=== PATIENT | male | born 1980 | race Two or more races ===

== ENCOUNTER 2018-09-27 11:29 | Emergency (ER) | payer OTHER ==
[~2018-09-27] VITALS: Ht 177.8 cm; Wt 99.8 kg
--- NOTE | 2018-09-27 11:30 | NUR ---
PATIENT C/O ABDOMINAL PAIN X "FEW DAYS", BREATHING EVEN AND UNLABORED, NO SOB NOTED. KEPT COMFORTABLE, PLACED ON THE MONITOR, AWAITING FOR MD COLUMBA.
[2018-09-27] MEDS ORDERED: ONDANSETRON HCL/PF 4 MG/2 ML VIAL IVP ONE (12:00)
[2018-09-27] MEDS ORDERED: MORPHINE SULFATE INJ 2 MG/ML DISP.SYRIN IV ONE (12:00)
[2018-09-27] MEDS ORDERED: IV NS 0.9% 1,000 ML BAG IV ONE (12:00)
[2018-09-27] MEDS ORDERED: ONDANSETRON HCL/PF 4 MG/2 ML VIAL ONE (12:01)
[2018-09-27] MEDS ORDERED: MORPHINE SULFATE INJ 4 MG/ML DISP.SYRIN ONE (12:01)
[2018-09-27 12:07] LABS: BASOPHILS % (AUTO) 0.4 % (0.0-2.0); EOSINOPHILS % (AUTO) 0.4 % (0.0-6.0); HEMATOCRIT 43 % (39-51); LYMPHOCYTES # (AUTO) 1.8 /CMM (0.8-4.8); LYMPHOCYTES % (AUTO) 21.1 % (20.0-44.0); MEAN CORPUSCULAR HGB CONC 35 g/dl (31.0-36.0); MEAN CORPUSCULAR VOLUME 92 fL (80-96); MONOCYTES % (AUTO) 11.5 % (2.0-12.0); NEUTROPHILS # (AUTO) 5.6 /CMM (1.8-8.9); NEUTROPHILS % (AUTO) 66.6 % (43.0-81.0); PLATELET COUNT (AUTO) 265 /CMM (150-450); RED BLOOD CELL COUNT(AUTO) 4.73 MIL/uL (4.5-6.0); WHITE BLOOD COUNT (AUTO) 8.4 K/uL (4.3-11.0)
[2018-09-27] MEDS ORDERED: KETOROLAC TROMETHAMINE INJ 30 MG/ML VIAL ONE (12:09)
[2018-09-27 12:14] LABS: CALCIUM, SERUM 9.3 mg/dL (8.5-10.1); POTASSIUM 3.8 mmol/L (3.5-5.1)
[2018-09-27 12:19] LABS: ALBUMIN 3.7 g/dL (3.4-5.0); BILIRUBIN,DIRECT 0.1 mg/dL (0.0-0.2); BILIRUBIN,TOTAL 0.6 mg/dL (0.2-1.0); TOTAL PROTEIN, SERUM 7.7 g/dL (6.4-8.2)
[2018-09-27] MEDS ORDERED: KETOROLAC TROMETHAMINE INJ 30 MG/ML VIAL IV ONE (12:30)
[2018-09-27 12:59] LABS: APPEARANCE,URINE Slightly Cloudy (CLEAR); BILIRUBIN,URINE MODERATE (NEGATIVE); BLOOD, URINE Negative Ery/uL (NEGATIVE); COLOR,URINE Dark (YELLOW); KETONES,URINE 15 (NEGATIVE); LEUKOCYTE ESTERASE ,URINE Negative (NEGATIVE); NITRITE, URINE Negative (NEGATIVE); PH,URINE 5.5 (5.0-8.0); PROTEIN,URINE 30 mg/dl (NEGATIVE); UGLUCOSE Negative (NEGATIVE); UROBILINOGEN,URINE 0.2 EU/dL (0.2)
[2018-09-27 13:06] LABS: BACTERIA,URINE Few /HPF (None Seen); RBC,URINE NONE SEEN /HPF (0-2); SQUAMOUS EPITHELIAL CELL,UR Few /HPF (None Seen); WBC,URINE NONE SEEN /HPF (0-3)
[2018-09-27 13:07] LABS: URINE AMORPHOUS URATE Moderate /HPF (None Seen)
[2018-09-27] MEDS ORDERED: PIPERACILLIN /TAZOBACTAM 3.375 G in IV D5W 50 ML IV ONE (14:00)
--- NOTE | 2018-09-27 14:33 | NUR ---
PERIPHERAL IV REMOVED. RX PROVIDED. Patient discharged to home in stable condition. Written and verbal after care instructions given. Patient verbalizes understanding of instruction.
[2018-09-27 14:34] VITALS: BP 130/73
== END 2018-09-27 14:35 | disposition home or self-care (01) ==
LOC: ER 11:31
DX: K57.32 Diverticulitis of large intestine without perforation or abscess without bleeding (principal); F17.200 Nicotine dependence, unspecified, uncomplicated
CPT/HCPCS: 36415; 71045; 74176; 80048; 80076; 81001; 83690; 85025; 93005; 96365; 96375; 99284; J1885; J2405; J2543; J7030; J7060; 81000-TC; J2270

== ENCOUNTER 2018-10-09 16:19 | Inpatient (IN) | payer OTHER ==
[~2018-10-09] VITALS: Ht 177.8 cm; Wt 97.1 kg
--- NOTE | 2018-10-09 16:32 | NUR ---
PT BIBSELF FOR ABD PAIN, X 2DAYS, WORSE TODAY. PT AAOX4, PT AMBULATORY, NAD NOTED, VSS, PENDING MD WATERMAN
[2018-10-09] MEDS ORDERED: TRAMADOL HCL 50 MG TABLET PO ONE (17:00)
[2018-10-09] MEDS ORDERED: IV NS 0.9% 1,000 ML BAG IV ONE (17:00)
[2018-10-09] MEDS ORDERED: TRAMADOL HCL 50 MG TABLET ONE (17:13)
[2018-10-09 17:18] LABS: BASOPHILS % (AUTO) 0.3 % (0.0-2.0); EOSINOPHILS % (AUTO) 0.5 % (0.0-6.0); HEMATOCRIT 43 % (39-51); HEMOGLOBIN 14.8 g/dL (13.5-17.5); LYMPHOCYTES # (AUTO) 1.3 /CMM (0.8-4.8); LYMPHOCYTES % (AUTO) 11.7 % (20.0-44.0); MEAN CORPUSCULAR HGB CONC 35 g/dl (31.0-36.0); MEAN CORPUSCULAR VOLUME 92 fL (80-96); MONOCYTES # (AUTO) 0.9 /CMM (0.1-1.30); NEUTROPHILS # (AUTO) 9.1 /CMM (1.8-8.9); NEUTROPHILS % (AUTO) 79.5 % (43.0-81.0); PLATELET COUNT (AUTO) 245 /CMM (150-450); RED BLOOD CELL COUNT(AUTO) 4.62 MIL/uL (4.5-6.0); WHITE BLOOD COUNT (AUTO) 11.4 K/uL (4.3-11.0)
[2018-10-09 17:23] LABS: CALCIUM, SERUM 8.8 mg/dL (8.5-10.1); POTASSIUM 3.5 mmol/L (3.5-5.1)
[2018-10-09 17:28] LABS: ALBUMIN 3.6 g/dL (3.4-5.0); BILIRUBIN,DIRECT 0.1 mg/dL (0.0-0.2); BILIRUBIN,TOTAL 0.5 mg/dL (0.2-1.0)
[2018-10-09] MEDS ORDERED: PIPERACILLIN /TAZOBACTAM 3.375 G in IV D5W 50 ML IV ONE (19:00)
[2018-10-09] MEDS ORDERED: KETOROLAC TROMETHAMINE INJ 30 MG/ML VIAL IV ONE (19:00)
--- NOTE | 2018-10-09 19:06 | NUR ---
CALLED Schedulize BAND SEWER WAS PAGED.
[2018-10-09] MEDS ORDERED: IBUP800T54 PO (19:18)
[2018-10-09] MEDS ORDERED: KETOROLAC TROMETHAMINE 15 MG/ML VIAL ONE (19:19)
--- NOTE | 2018-10-09 19:30 | NUR ---
REPORT GIVEN TO MISSY CLOUD FOR VALERIE
[2018-10-09] MEDS ORDERED: ONDANSETRON HCL/PF 4 MG/2 ML VIAL IVP PRN (20:30)
[2018-10-09] MEDS ORDERED: Z GUARD REMEDY 2 OZ OINT TP PRN (20:30)
[2018-10-09] MEDS ORDERED: MAG HYDROX/AL HYDROX/SIMETH 30 ML UDC PO PRN (20:30)
[2018-10-09] MEDS ORDERED: HYDROCODONE/APAP 5/325MG 1 EACH TABLET PO PRN (20:30)
[2018-10-09] MEDS ORDERED: MAGNESIUM HYDROXIDE 30 ML UDC PO PRN (20:30)
[2018-10-09] MEDS ORDERED: MORPHINE SULFATE INJ 2 MG/ML DISP.SYRIN IV PRN (20:30)
--- NOTE | 2018-10-09 20:30 | NUR ---
REPORT GIVEN TO PEDRO LUIS GASCA FOR VALERIE.
--- NOTE | 2018-10-09 22:07 | NUR ---
MS RN NOTE PT ARRIVED TO FLOOR IN STABLE CONDITION. PT A&O X4, ABLE TO MAKE NEEDS KNOWN. NO SIGNS OF SOB/DISTRESS, NO C/O PAIN. ON RA SATURATION IS 100%. BODY CHECK DONE, SKIN IS IN TACT. ALL BELONGINGS ACCOUNTED AND SIGNED FOR. IV IN L AC PATENT WITH NO SIGNS OF INFECTION. ALL CURRENT NEEDS ATTENDED TO. SAFETY PRECAUTIONS IN PLACE: BED LOW, LOCKED, UPPER RAILS UP, AND CALL LIGHT WITHIN REACH. WILL CONT. TO MONITOR.
[2018-10-09 22:30] VITALS: BP 109/66
[2018-10-09] MEDS: IV NS 0.9% 1,000 ML IV PRN (22:31)
[2018-10-09] MEDS: ACETAMINOPHEN 325 MG TABLET PO PRN (22:43)
[2018-10-09] MEDS ORDERED: PIPERACILLIN /TAZOBACTAM 3.375 G VIAL IV ONE (23:13)
[2018-10-09] MEDS: PIPERACILLIN /TAZOBACTAM 3.375 G in IV D5W 50 ML IV SCH (23:41)
[2018-10-10] MEDS ORDERED: diphenhydrAMINE HCL ELIX 25 MG/10 ML UDC PO ONE (02:30)
[2018-10-10] MEDS ORDERED: PIPERACILLIN /TAZOBACTAM 3.375 G VIAL IV ONE (05:16)
[2018-10-10] MEDS: PIPERACILLIN /TAZOBACTAM 3.375 G in IV D5W 50 ML IV SCH (05:28)
--- NOTE | 2018-10-10 06:31 | NUR ---
MS RN NOTE PT A&O X4, ABLE TO MAKE NEEDS KNOWN. NO SIGNS OF SOB/DISTRESS, NO C/O PAIN. ON RA SATURATION IS 100%. IV IN L AC PATENT IVF INFUSING, TOLERATING WELL WITH NO SIGNS OF INFECTION. ALL CURRENT NEEDS ATTENDED TO. SAFETY PRECAUTIONS IN PLACE: BED LOW, LOCKED, UPPER RAILS UP, AND CALL LIGHT WITHIN REACH. WILL CONT. TO MONITOR AND ENDORSE TO NEXT SHIFT FOR VALERIE.
[2018-10-10 07:33] LABS: BASOPHILS % (AUTO) 0.5 % (0.0-2.0); EOSINOPHILS % (AUTO) 1.6 % (0.0-6.0); HEMATOCRIT 41 % (39-51); HEMOGLOBIN 14.3 g/dL (13.5-17.5); LYMPHOCYTES # (AUTO) 1.5 /CMM (0.8-4.8); LYMPHOCYTES % (AUTO) 17.8 % (20.0-44.0); MEAN CORPUSCULAR HGB CONC 35 g/dl (31.0-36.0); MEAN CORPUSCULAR VOLUME 93 fL (80-96); MONOCYTES # (AUTO) 1.1 /CMM (0.1-1.30); MONOCYTES % (AUTO) 13.3 % (2.0-12.0); NEUTROPHILS # (AUTO) 5.5 /CMM (1.8-8.9); NEUTROPHILS % (AUTO) 66.8 % (43.0-81.0); PLATELET COUNT (AUTO) 221 /CMM (150-450); RED BLOOD CELL COUNT(AUTO) 4.43 MIL/uL (4.5-6.0); WHITE BLOOD COUNT (AUTO) 8.3 K/uL (4.3-11.0)
[2018-10-10 07:52] LABS: CALCIUM, SERUM 8.8 mg/dL (8.5-10.1); POTASSIUM 3.5 mmol/L (3.5-5.1)
[2018-10-10 08:00] VITALS: BP 123/64
[2018-10-10 08:01] LABS: THYROID STIMULATING HORMONE 2.072 uIU/mL (0.358-3.74)
--- NOTE | 2018-10-10 08:06 | NUR ---
M/S RN NOTES PATIENT AWAKE IN BED, ALERT AND ORIENTED X4. NO ACUTE DISTRESS NOTED. NO SOB. DENIES ANY PAIN AT THIS TIME. SKIN WARM TO TOUCH. IVF NS INFUSING WELL AT 75ML/HR, ON THE LT AC #18G, NO REDNESS, NO INFILTRATION NOTED. BED ON LOW AND LOCKED POSITION. CALL LIGHT WITHIN REACH.
[2018-10-10] MEDS: FAMOTIDINE (20 MG) 20 MG TABLET PO SCH ×2 (08:36→17:37)
[2018-10-10] MEDS: ACETAMINOPHEN 325 MG TABLET PO PRN (08:42)
[2018-10-10] MEDS: PIPERACILLIN /TAZOBACTAM 3.375 G in IV D5W 100 ML IV SCH ×2 (13:32→21:59)
[2018-10-10 14:07] LABS: APPEARANCE,URINE CLEAR (CLEAR); BILIRUBIN,URINE NEGATIVE (NEGATIVE); BLOOD, URINE NEGATIVE Ery/uL (NEGATIVE); COLOR,URINE YELLOW (YELLOW); KETONES,URINE NEGATIVE (NEGATIVE); LEUKOCYTE ESTERASE ,URINE NEGATIVE (NEGATIVE); NITRITE, URINE NEGATIVE (NEGATIVE); PROTEIN,URINE NEGATIVE (NEGATIVE); UGLUCOSE NEGATIVE (NEGATIVE); UROBILINOGEN,URINE 0.2 EU/dL (0.2)
[2018-10-10 16:00] VITALS: BP 111/65
[2018-10-10] MEDS: IV NS 0.9% 1,000 ML IV PRN (17:34)
--- NOTE | 2018-10-10 19:14 | NUR ---
M/S RN NOTES PATIENT AWAKE IN BED, ALERT AND ORIENTED X4, ABLE TO MAKE NEEDS KNOWN. NO ACUTE DISTRESS NOTED, NO SOB. IV ON LT AC #18G, INTACT AND PATENT. IV ANTIBIOTICS GIVEN PRESCRIBED. BED LOW AND LOCKED. WILL ENDORSE TO ONCOMING NURSE.
--- NOTE | 2018-10-10 19:40 | NUR ---
RN OPENING NOTES RECEIVED REPORT FROM DAYSHIFT RN. FOUND Pt ASLEEP IN BED. RESPIRATIONS EVEN AND UNLABORED. PER REPORT Pt IS A/OX4, VERBAL, ABLE TO MAKE NEEDS KNOWN. NO S/S OF ACUTE DISTRESS OR SOB NOTED. IV ACCESS ON LAC#18G NS@75ML/HR. CURRENTLY OFF IV. SAFETY MEASURES IN PLACE. BED LOW, LOCKED, HOB ELEVATED, SIDE RAILS UP, CALL LIGHT AND BEDSIDE TABLE WITHIN REACH. WILL CONTINUE TO MONITOR Pt's CONDITION AND SAFETY THROUGHOUT THE NIGHT.
[2018-10-10 20:00] VITALS: BP 110/64
--- NOTE | 2018-10-10 22:15 | NUR ---
RN NOTES C.DIFF STOOL SAMPLE COLLECTED AND DROPPED OFF TO LAB.
[2018-10-11] MEDS: PIPERACILLIN /TAZOBACTAM 3.375 G in IV D5W 100 ML IV SCH (05:45)
--- NOTE | 2018-10-11 07:23 | NUR ---
RN CLOSING NOTES NO SIGNIFICANT CHANGES IN Pt's CONDITION. Pt IS STABLE AT THIS TIME. NO S/S OF ACUTE DISTRESS OR SOB NOTED DURING THE SHIFT. Pt IS RESTING IN BED COMFORTABLY. RESPIRATIONS EVEN AND UNLABORED. ALL NEEDS MET AND ATTENDED TO. SAFETY MEASURES IN PLACE. WILL ENDORSE TO DAYSHIFT RN FOR Pt's VALERIE.
[2018-10-11 07:24] LABS: BASOPHILS % (AUTO) 0.5 % (0.0-2.0); EOSINOPHILS % (AUTO) 2.5 % (0.0-6.0); HEMATOCRIT 42 % (39-51); HEMOGLOBIN 14.3 g/dL (13.5-17.5); LYMPHOCYTES # (AUTO) 2.3 /CMM (0.8-4.8); LYMPHOCYTES % (AUTO) 33.1 % (20.0-44.0); MEAN CORPUSCULAR HGB CONC 34 g/dl (31.0-36.0); MEAN CORPUSCULAR VOLUME 93 fL (80-96); MONOCYTES # (AUTO) 1.1 /CMM (0.1-1.30); MONOCYTES % (AUTO) 16.7 % (2.0-12.0); NEUTROPHILS # (AUTO) 3.2 /CMM (1.8-8.9); NEUTROPHILS % (AUTO) 47.2 % (43.0-81.0); PLATELET COUNT (AUTO) 234 /CMM (150-450); RED BLOOD CELL COUNT(AUTO) 4.57 MIL/uL (4.5-6.0); WHITE BLOOD COUNT (AUTO) 6.8 K/uL (4.3-11.0)
--- NOTE | 2018-10-11 07:30 | NUR ---
MS RN OPENING NOTES RECEIVED PT AWAKE IN BED IN NO ACUTE SIGNS OF DISTRESS. A/OX4. ABLE TO MAKE NEEDS KNOWN, NO C/O PAIN OR DISCOMFORTS VOICED AT THIS TIME. ON ROOM AIR, BREATHING EVEN WITH NO S/S OF ACUTE DISTRESS NOTED. IV ACCESS ON LAC#18G INTACT AND PATENT WITH IV ATB OF ZOSYN INFUSING AT THIS TIME, NO S/S OF INFILTRATIONS NOTED. .SAFETY MEASURES IN PLACE. BED LOW, LOCKED, HOB ELEVATED, SIDE RAILS UP, CALL LIGHT AND BEDSIDE TABLE WITHIN REACH. WILL CONTINUE TO MONITOR PT ACCORDINGLY. .
[2018-10-11 07:43] LABS: CALCIUM, SERUM 9.4 mg/dL (8.5-10.1); POTASSIUM 3.7 mmol/L (3.5-5.1)
[2018-10-11 08:12] VITALS: BP 108/65
[2018-10-11] MEDS: FAMOTIDINE (20 MG) 20 MG TABLET PO SCH ×2 (09:24→17:07)
[2018-10-11] MEDS ORDERED: METR500T PO ×2 (11:32→13:28)
[2018-10-11] MEDS ORDERED: CIPR-262 PO (11:32)
[2018-10-11] MEDS ORDERED: PANT40TA2 PO (11:38)
--- NOTE | 2018-10-11 13:05 | NUR ---
RN NOTES RECEIVED CALL FROM [facility] MICROBIOLOGY DEPT THAT PT IS POSITIVE FOR C-DIFF. DRY CLEANING TEACHER VANESSA MADE AWARE. ABT VANCOCIN 125MG PO Q6HRS ORDERED. CONTACT PRECAUTIONS INITIATED. INFORMED PT AND VERBALIZED UNDERSTANDING. WILL CONTINUE TO MONITOR.
[2018-10-11] MEDS ORDERED: VANC125C11 PO (13:24)
[2018-10-11] MEDS ORDERED: METRONIDAZOLE 500MG/ NS 100ML 500 MG in PREMIX 1 EA IV SCH (14:00)
[2018-10-11 16:00] VITALS: BP 165/98
--- NOTE | 2018-10-11 17:32 | NUR ---
STATION GATEMAN NOTES PATIENT DISCHARGE HOME IN STABLE CONDITION. A/O X4. ABLE TO VERBALIZED NEEDS AND AMBULATORY. V/S TAKEN RECORDED. IV ACCESS REMOVED WITH NO BLEEDING NOTED. NAME WRISTBAND REMOVED. ALL BELONGINGS ACCOUNTED FOR AND SIGNED FORM. DISCHARGE INSTRUCTIONS/ HEALTH TEACHINGS GIVEN AND VERBALIZED UNDERSTANDING. PRESCRIPTION FOR VANCOCIN ORAL AND PROTONIX TAB HANDED TO PT. PATIENT LEFT UNIT AMBULATORY AT 1715. CHARGE NURSE AWARE OF DISCHARGE.
[2018-10-11] MEDS ORDERED: VANCOMYCIN HCL 125 MG/2.5 ML ORAL.SUSP PO SCH (18:00)
== END 2018-10-11 17:15 | disposition home or self-care (01) | DRG 248 ==
LOC: ER 16:19 → MED 21:57
PROVIDERS: ADMIT Nurse Practitioner Acute Care; ATTEND Registered Nurse
DX: A04.9 Bacterial intestinal infection, unspecified (principal); K57.92 Diverticulitis of intestine, part unspecified, without perforation or abscess without bleeding; Z87.891 Personal history of nicotine dependence
CPT/HCPCS: 36415; 80048-TC; 80061-TC; 80076-TC; 81000-TC; 83735-TC; 84100-TC; 84443-TC; 85025-TC; 87045-TC; 87081-TC; 87177; 87209; 89055; A4216; G0378; J1885; J2543; J3490; J7030; J7060

== ENCOUNTER 2018-12-28 15:04 | Emergency (ER) | payer OTHER ==
[~2018-12-28] VITALS: Ht 177.8 cm; Wt 98.0 kg
[~2018-12-28 15:04] MED LIST: METR500T PO; PANT40TA2 PO; VANC125C11 PO
[2018-12-28] MEDS ORDERED: IV NS 0.9% 1,000 ML BAG IV ONE (15:30)
[2018-12-28] MEDS ORDERED: PIPERACILLIN /TAZOBACTAM 4.5 G in IV D5W 50 ML IV ONE (15:30)
[2018-12-28] MEDS ORDERED: ONDANSETRON HCL/PF 4 MG/2 ML VIAL IVP ONE (15:30)
--- NOTE | 2018-12-28 15:30 | NUR ---
PT REC'D TO ER C/O ABD PAIN 04/03 PT HAS DIVERTICULOUIS IV STARTED RT AC 20G LABS DRAWN SENT TO LAB VSS PT REFUSED MS WASTED WITH AMY GAVE TORADOL 30 MG IVP INSTEAD ZOFRAN ZOYSN GIVEN PER MD ORDER
[2018-12-28 15:31] LABS: BASOPHILS # (AUTO) 0.1 /CMM (0.0-0.2); BASOPHILS % (AUTO) 0.4 % (0.0-2.0); EOSINOPHILS % (AUTO) 0.1 % (0.0-6.0); HEMATOCRIT 46 % (39-51); HEMOGLOBIN 15.6 g/dL (13.5-17.5); LYMPHOCYTES % (AUTO) 15.9 % (20.0-44.0); MEAN CORPUSCULAR HGB CONC 34 g/dl (31.0-36.0); MEAN CORPUSCULAR VOLUME 91 fL (80-96); MONOCYTES # (AUTO) 1.5 /CMM (0.1-1.30); NEUTROPHILS % (AUTO) 71.6 % (43.0-81.0); PLATELET COUNT (AUTO) 241 /CMM (150-450); RED BLOOD CELL COUNT(AUTO) 5.02 MIL/uL (4.5-6.0); WHITE BLOOD COUNT (AUTO) 12.6 K/uL (4.3-11.0)
[2018-12-28] MEDS: MORPHINE SULFATE INJ 2 MG/ML DISP.SYRIN IV ONE ×2 (15:31→15:55)
[2018-12-28] MEDS ORDERED: MORPHINE SULFATE INJ 4 MG/ML DISP.SYRIN ONE (15:34)
[2018-12-28] MEDS ORDERED: ONDANSETRON HCL/PF 4 MG/2 ML VIAL ONE ×2 (15:34→15:42)
[2018-12-28] MEDS ORDERED: MORPHINE SULFATE INJ 2 MG/ML DISP.SYRIN ONE (15:34)
[2018-12-28] MEDS ORDERED: ONDANSETRON 4 MG TAB.RAPDIS ONE (15:35)
[2018-12-28 15:40] LABS: CALCIUM, SERUM 9.5 mg/dL (8.5-10.1); CREATININE 0.9 mg/dL (0.6-1.3); POTASSIUM 3.7 mmol/L (3.5-5.1)
[2018-12-28] MEDS ORDERED: KETOROLAC TROMETHAMINE 15 MG/ML VIAL ONE (15:42)
[2018-12-28 15:45] LABS: ALBUMIN 3.6 g/dL (3.4-5.0); BILIRUBIN,DIRECT 0.3 mg/dL (0.0-0.2); BILIRUBIN,TOTAL 1.1 mg/dL (0.2-1.0); TOTAL PROTEIN, SERUM 7.9 g/dL (6.4-8.2)
--- NOTE | 2018-12-28 15:58 | NUR ---
PT GIVEN TORADOL FEELS BETTER
[2018-12-28] MEDS ORDERED: KETOROLAC TROMETHAMINE INJ 30 MG/ML VIAL IV ONE (16:00)
--- NOTE | 2018-12-28 16:42 | NUR ---
pt stated felling betterIV removed. Catheter intact and site benign. Pressure and 4x4 applied to site. No bleeding noted.PT. VERBALIZED UNDERSTANDING OF AFTERCARE INSTRUCTIONS.
[2018-12-28 16:44] VITALS: BP 125/58
== END 2018-12-28 16:45 | disposition home or self-care (01) ==
LOC: ER 15:04
DX: K57.92 Diverticulitis of intestine, part unspecified, without perforation or abscess without bleeding (principal); F17.200 Nicotine dependence, unspecified, uncomplicated
CPT/HCPCS: 36415; 80048; 80076; 83690; 85025; 96365; 96375; 99283; J1885; J2270 ×2; J2405 ×2; J2543; J7030; J7060; Q0162

== ENCOUNTER 2019-02-21 11:41 | Emergency (ER) | payer OTHER ==
[~2019-02-21] VITALS: Ht 177.8 cm; Wt 89.8 kg
[2019-02-21] MEDS ORDERED: MORPHINE SULFATE INJ 4 MG/ML DISP.SYRIN ONE (12:23)
[2019-02-21] MEDS ORDERED: ONDANSETRON HCL/PF 4 MG/2 ML VIAL ONE (12:23)
[2019-02-21] MEDS ORDERED: ONDANSETRON HCL/PF 4 MG/2 ML VIAL IVP ONE (12:30)
[2019-02-21] MEDS ORDERED: IV NS 0.9% 1,000 ML BAG IV ONE (12:30)
[2019-02-21] MEDS ORDERED: MORPHINE SULFATE INJ 2 MG/ML DISP.SYRIN IV ONE (12:30)
[2019-02-21 12:41] LABS: BASOPHILS # (AUTO) 0.1 /CMM (0.0-0.2); BASOPHILS % (AUTO) 0.6 % (0.0-2.0); EOSINOPHILS % (AUTO) 0.3 % (0.0-6.0); HEMATOCRIT 44 % (39-51); HEMOGLOBIN 15.2 g/dL (13.5-17.5); LYMPHOCYTES % (AUTO) 18.3 % (20.0-44.0); MEAN CORPUSCULAR HGB CONC 35 g/dl (31.0-36.0); MEAN CORPUSCULAR VOLUME 92 fL (80-96); MONOCYTES # (AUTO) 1.4 /CMM (0.1-1.30); MONOCYTES % (AUTO) 13.4 % (2.0-12.0); NEUTROPHILS # (AUTO) 7.2 /CMM (1.8-8.9); NEUTROPHILS % (AUTO) 67.4 % (43.0-81.0); PLATELET COUNT (AUTO) 235 /CMM (150-450); RED BLOOD CELL COUNT(AUTO) 4.76 MIL/uL (4.5-6.0); WHITE BLOOD COUNT (AUTO) 10.7 K/uL (4.3-11.0)
[2019-02-21] MEDS ORDERED: KETOROLAC TROMETHAMINE INJ 30 MG/ML VIAL ONE (12:44)
[2019-02-21 12:48] LABS: CALCIUM, SERUM 9.1 mg/dL (8.5-10.1); POTASSIUM 3.8 mmol/L (3.5-5.1)
--- NOTE | 2019-02-21 12:48 | NUR ---
LOWER ABDOMINAL PAIN FOR THE PAST FEW DAYS. PT AAOX4, VSS. RR EVEN & UNLABORED. DENIES CP, SOB, DIZZINESS, DIARRHEA @ THIS TIME. SEEN & EVAL'D BY DR. SIMPSON. WILL CONT TO MONITOR.
--- NOTE | 2019-02-21 12:52 | NUR ---
PT TO CT VIA [facility].
[2019-02-21 12:53] LABS: ALBUMIN 3.5 g/dL (3.4-5.0); BILIRUBIN,DIRECT 0.2 mg/dL (0.0-0.2); TOTAL PROTEIN, SERUM 7.5 g/dL (6.4-8.2)
[2019-02-21] MEDS ORDERED: KETOROLAC TROMETHAMINE INJ 30 MG/ML VIAL IV ONE (13:00)
[2019-02-21] MEDS ORDERED: PIPERACILLIN /TAZOBACTAM 3.375 G in IV D5W 50 ML IV ONE (13:30)
[2019-02-21 14:51] VITALS: BP 124/82
--- NOTE | 2019-02-21 14:51 | NUR ---
Patient discharged to home in stable condition. Written and verbal after care instructions given. Patient verbalizes understanding of instruction. IV removed. Catheter intact and site benign. Pressure and 4x4 applied to site. No bleeding noted.
== END 2019-02-21 14:52 | disposition home or self-care (01) ==
LOC: ER 11:44
DX: K57.32 Diverticulitis of large intestine without perforation or abscess without bleeding (principal); F17.200 Nicotine dependence, unspecified, uncomplicated
CPT/HCPCS: 36415; 74176; 80048; 80076; 83690; 85025; 96365; 96375; 99284; J1885; J2405; J2543; J7030; J7060; J2270

== ENCOUNTER 2020-03-23 14:57 | Emergency (ER) | payer OTHER ==
[~2020-03-23] VITALS: Ht 177.8 cm; Wt 89.8 kg
[2020-03-23] MEDS ORDERED: LEVOFLOXACIN 750 MG /D5W 150ML 150 ML IV ONE ×2 (15:30→15:52)
[2020-03-23] MEDS ORDERED: METRONIDAZOLE 500MG/ NS 100ML 100 ML IV ONE ×2 (15:30→15:52)
[2020-03-23] MEDS ORDERED: KETOROLAC TROMETHAMINE INJ 30 MG/ML VIAL IV ONE (15:30)
[2020-03-23] MEDS ORDERED: IV NS 0.9% 1,000 ML BAG IV ONE (15:30)
[2020-03-23 15:41] LABS: BASOPHILS % (AUTO) 0.3 % (0.0-2.0); EOSINOPHILS % (AUTO) 0.7 % (0.0-6.0); HEMATOCRIT 44 % (39-51); HEMOGLOBIN 14.9 g/dL (13.5-17.5); LYMPHOCYTES # (AUTO) 2.3 /CMM (0.8-4.8); LYMPHOCYTES % (AUTO) 26.2 % (20.0-44.0); MEAN CORPUSCULAR HGB CONC 34 g/dl (31.0-36.0); MEAN CORPUSCULAR VOLUME 94 fL (80-96); MONOCYTES # (AUTO) 0.9 /CMM (0.1-1.30); MONOCYTES % (AUTO) 10.2 % (2.0-12.0); NEUTROPHILS # (AUTO) 5.5 /CMM (1.8-8.9); NEUTROPHILS % (AUTO) 62.6 % (43.0-81.0); PLATELET COUNT (AUTO) 225 /CMM (150-450); RED BLOOD CELL COUNT(AUTO) 4.64 MIL/uL (4.5-6.0); WHITE BLOOD COUNT (AUTO) 8.9 K/uL (4.3-11.0)
[2020-03-23 15:48] LABS: CALCIUM, SERUM 8.6 mg/dL (8.5-10.1); CREATININE 0.9 mg/dL (0.6-1.3); POTASSIUM 3.9 mmol/L (3.5-5.1)
--- NOTE | 2020-03-23 15:50 | NUR ---
BIBS FROM HOME TO ER BED 7. AAOX4. NOT IN RESP DISTRESS. AMBULATORY. CAME IN FOR LOWER ABDOMINAL PAIN. PER PT, HE HAS HX OF DIVERTICULITIS AND FEELS THAT THAT PAIN IS THE SAME WHEN HE HAVE FLARES. PAIN IS 4/10 DULL IN SENSATION. DENIES NAUSEA NOR VOMMITING. MD WAS AT THE BEDSIDE FOR EVAL. ORDERS RECEIVED NOTED AND CARRIED.
[2020-03-23] MEDS ORDERED: KETOROLAC TROMETHAMINE 15 MG/ML VIAL ONE (15:52)
[2020-03-23 15:55] LABS: ALBUMIN 3.3 g/dL (3.4-5.0); BILIRUBIN,DIRECT 0.1 mg/dL (0.0-0.2); BILIRUBIN,TOTAL 0.4 mg/dL (0.2-1.0); TOTAL PROTEIN, SERUM 7.4 g/dL (6.4-8.2)
[2020-03-23] MEDS ORDERED: IOHEXOL-300 100 ML VIAL IV ONE (16:07)
[2020-03-23] MEDS ORDERED: CT SWABBABLE VALVE TRANS SET 1 EA INFUS.SET MC ONE (16:07)
[2020-03-23] MEDS ORDERED: IV NS 0.9% 250 ML IV ONE (16:07)
[2020-03-23 16:52] LABS: APPEARANCE,URINE Clear (CLEAR); BILIRUBIN,URINE Negative (NEGATIVE); BLOOD, URINE Negative Ery/uL (NEGATIVE); COLOR,URINE Yellow (YELLOW); KETONES,URINE Negative (NEGATIVE); LEUKOCYTE ESTERASE ,URINE Negative (NEGATIVE); NITRITE, URINE Negative (NEGATIVE); PH,URINE 5.5 (5.0-8.0); PROTEIN,URINE Negative (NEGATIVE); UGLUCOSE Negative (NEGATIVE); UROBILINOGEN,URINE 0.2 EU/dL (0.2)
[2020-03-23 18:49] VITALS: BP 125/76
== END 2020-03-23 18:47 | disposition home or self-care (01) ==
LOC: ER 14:57
DX: K57.32 Diverticulitis of large intestine without perforation or abscess without bleeding (principal); F17.200 Nicotine dependence, unspecified, uncomplicated
CPT/HCPCS: 36415; 74177; 80048; 80076; 81001; 83690; 85025; 96365; 96367; 99285; J1885; J1956; J7030; J7050; Q9967; 81000-TC

== ENCOUNTER 2020-09-04 18:49 | Emergency (ER) | payer OTHER ==
[~2020-09-04] VITALS: Ht 177.8 cm; Wt 90.7 kg
--- NOTE | 2020-09-04 19:20 | NUR ---
HOSPICE TEAM LEAD AT BEDSIDE FOR BLOOD DRAW.
[2020-09-04 19:27] LABS: BASOPHILS # (AUTO) 0.1 /CMM (0.0-0.2); BASOPHILS % (AUTO) 1.6 % (0.0-2.0); EOSINOPHILS % (AUTO) 0.5 % (0.0-6.0); HEMATOCRIT 44 % (39-51); HEMOGLOBIN 15.3 g/dL (13.5-17.5); LYMPHOCYTES # (AUTO) 1.8 /CMM (0.8-4.8); LYMPHOCYTES % (AUTO) 19.8 % (20.0-44.0); MEAN CORPUSCULAR HGB CONC 35 g/dl (31.0-36.0); MEAN CORPUSCULAR VOLUME 95 fL (80-96); MONOCYTES # (AUTO) 0.9 /CMM (0.1-1.30); MONOCYTES % (AUTO) 10.5 % (2.0-12.0); NEUTROPHILS % (AUTO) 67.6 % (43.0-81.0); PLATELET COUNT (AUTO) 224 /CMM (150-450); RED BLOOD CELL COUNT(AUTO) 4.69 MIL/uL (4.5-6.0); WHITE BLOOD COUNT (AUTO) 8.9 K/uL (4.3-11.0)
[2020-09-04 19:42] LABS: ALBUMIN 3.7 g/dL (3.4-5.0); BILIRUBIN,DIRECT 0.1 mg/dL (0.0-0.2); BILIRUBIN,TOTAL 0.5 mg/dL (0.2-1.0); CALCIUM, SERUM 9.4 mg/dL (8.5-10.1); CREATININE 0.9 mg/dL (0.6-1.3); TOTAL PROTEIN, SERUM 7.8 g/dL (6.4-8.2)
[2020-09-04] MEDS ORDERED: AMOX-430 PO (20:26)
--- NOTE | 2020-09-04 20:39 | NUR ---
BIBS C/O LOWER ABD PA8IN X 3 DAYS. /10 SHARP CRAMPING IN NATURE. WAS AT THE BEDSIDE FOR EVAL. ORDERS RECEIVED, NOTED AND CARRIED OUT.
[2020-09-04 20:40] VITALS: BP 154/87
--- NOTE | 2020-09-04 20:40 | NUR ---
Patient discharged to home in stable condition. Written and verbal after care instructions given. Patient verbalizes understanding of instruction. Pt ambulatory with a steady gait
== END 2020-09-04 20:40 | disposition home or self-care (01) ==
LOC: ER 18:51
DX: K57.92 Diverticulitis of intestine, part unspecified, without perforation or abscess without bleeding (principal); F17.200 Nicotine dependence, unspecified, uncomplicated
CPT/HCPCS: 36415; 80048-TC; 80076-TC; 83690-TC; 85025-TC; 85652-TC; 86140-TC

== ENCOUNTER 2020-09-07 17:47 | Emergency (ER) | payer OTHER ==
[~2020-09-07] VITALS: Ht 177.8 cm; Wt 90.7 kg
[~2020-09-07 17:47] MED LIST changes: +AMOX-430 PO; -METR500T PO; -PANT40TA2 PO; -VANC125C11 PO
[2020-09-07] MEDS ORDERED: IV NS 0.9% 1,000 ML BAG IV ONE (18:30)
[2020-09-07] MEDS ORDERED: LEVOFLOXACIN 750 MG /D5W 150ML PIGGYBACK IV ONE (18:30)
[2020-09-07] MEDS ORDERED: FLAGYL/NS RTU 500 MG/100 ML PIGGYBACK IV ONE (18:30)
[2020-09-07] MEDS ORDERED: LEVOFLOXACIN 750 MG /D5W 150ML 150 ML IV ONE (18:37)
[2020-09-07] MEDS ORDERED: METRONIDAZOLE 500MG/ NS 100ML 100 ML IV ONE (18:37)
[2020-09-07 18:43] LABS: BASOPHILS % (AUTO) 0.4 % (0.0-2.0); EOSINOPHILS % (AUTO) 0.6 % (0.0-6.0); HEMATOCRIT 43 % (39-51); HEMOGLOBIN 14.9 g/dL (13.5-17.5); LYMPHOCYTES # (AUTO) 1.8 /CMM (0.8-4.8); LYMPHOCYTES % (AUTO) 23.1 % (20.0-44.0); MEAN CORPUSCULAR HGB CONC 35 g/dl (31.0-36.0); MEAN CORPUSCULAR VOLUME 93 fL (80-96); MONOCYTES # (AUTO) 0.9 /CMM (0.1-1.30); MONOCYTES % (AUTO) 11.5 % (2.0-12.0); NEUTROPHILS # (AUTO) 4.9 /CMM (1.8-8.9); NEUTROPHILS % (AUTO) 64.4 % (43.0-81.0); PLATELET COUNT (AUTO) 242 /CMM (150-450); RED BLOOD CELL COUNT(AUTO) 4.61 MIL/uL (4.5-6.0); WHITE BLOOD COUNT (AUTO) 7.6 K/uL (4.3-11.0)
--- NOTE | 2020-09-07 18:50 | NUR ---
BIB SELF C/O LOWER ABDOMINAL PAIN FOR 4 DAYS. PT AAOX4, VSS. RR EVEN & UNLABORED. DENIES CP, SOB, DIZZINESS, N/V/D AT THIS TIME. PT SEEN & EVAL'D BY TARYN SANCHEZ. MEDICATED ORDERED, PT RUSTY WELL. WILL CONT TO MONITOR.
[2020-09-07 19:19] LABS: CALCIUM, SERUM 9.2 mg/dL (8.5-10.1); CREATININE 0.9 mg/dL (0.6-1.3)
[2020-09-07 19:23] LABS: ALBUMIN 3.5 g/dL (3.4-5.0); BILIRUBIN,DIRECT 0.1 mg/dL (0.0-0.2); BILIRUBIN,TOTAL 0.4 mg/dL (0.2-1.0); TOTAL PROTEIN, SERUM 7.8 g/dL (6.4-8.2)
--- NOTE | 2020-09-07 19:45 | NUR ---
URINE COLLECTED AND SENT TO LAB
[2020-09-07 19:55] LABS: BILIRUBIN,URINE Negative (NEGATIVE); COLOR,URINE YELLOW (YELLOW); LEUKOCYTE ESTERASE ,URINE Negative (NEGATIVE); NITRITE, URINE Negative (NEGATIVE); PH,URINE 5.5 (5.0-8.0); PROTEIN,URINE Negative (NEGATIVE); UGLUCOSE Negative (NEGATIVE); UROBILINOGEN,URINE 0.2 EU/dL (0.2)
[2020-09-07] MEDS ORDERED: LEVO750T46 PO (20:59)
[2020-09-07] MEDS ORDERED: METR500T PO (20:59)
--- NOTE | 2020-09-07 21:24 | NUR ---
Patient discharged to home in stable condition. Written and verbal after care instructions given. Patient verbalizes understanding of instruction.IV removed. Catheter intact and site benign. Pressure and 4x4 applied to site. No bleeding noted.Pt ambulatory with a steady gait
[2020-09-07 21:25] VITALS: BP 124/74
== END 2020-09-07 21:25 | disposition home or self-care (01) ==
LOC: ER 17:49
DX: K57.32 Diverticulitis of large intestine without perforation or abscess without bleeding (principal); K59.00 Constipation, unspecified; F17.200 Nicotine dependence, unspecified, uncomplicated; Z79.899 Other long term (current) drug therapy
CPT/HCPCS: 36415; 74021; 80048; 80076; 81003; 83690; 85025; 85730; 96365; 96366; 96368; 99284; J1956; J7030

== ENCOUNTER 2021-04-02 01:40 | Emergency (ER) | payer OTHER ==
[~2021-04-02] VITALS: Ht 180.3 cm; Wt 90.7 kg
[~2021-04-02 01:40] MED LIST changes: +LEVO750T46 PO; +METR500T PO
--- NOTE | 2021-04-02 01:58 | NUR ---
BIB SELF C/O GENERALIZED ABD "CRAMPING" FOR A FEW DAYS. ENDORSES HISTORY OF DIVERTICULITIS AND STATES THIS FEELS SIMILIAR. HAS NOT HAD A BM IN A FEW DAYS BUT DENIES N/V. CHANGED INTO A GOWN AND PLACED ON THE MONITOR BREATHING EVEN AND UNLABORED. RUBY GAMBLE WAS AT BEDSIDE FOR EVAL.
[2021-04-02] MEDS ORDERED: ONDANSETRON HCL/PF 4 MG/2 ML VIAL ONE (02:05)
[2021-04-02] MEDS ORDERED: MORPHINE SULFATE INJ 4 MG/ML DISP.SYRIN ONE (02:06)
--- NOTE | 2021-04-02 02:17 | NUR ---
PT TAKEN TO CT
[2021-04-02] MEDS ORDERED: KETOROLAC TROMETHAMINE INJ 30 MG/ML VIAL ONE (02:22)
[2021-04-02] MEDS ORDERED: ONDANSETRON HCL/PF 4 MG/2 ML VIAL IVP ONE (02:30)
[2021-04-02] MEDS ORDERED: MORPHINE SULFATE INJ 2 MG/ML DISP.SYRIN IV ONE (02:30)
[2021-04-02] MEDS ORDERED: KETOROLAC TROMETHAMINE INJ 30 MG/ML VIAL IV ONE (02:30)
[2021-04-02] MEDS ORDERED: IV NS 0.9% 1,000 ML BAG IV ONE (02:30)
[2021-04-02 02:31] LABS: BILIRUBIN,URINE SMALL (NEGATIVE); COLOR,URINE YELLOW (YELLOW); LEUKOCYTE ESTERASE ,URINE Negative (NEGATIVE); NITRITE, URINE Negative (NEGATIVE); PH,URINE 5.5 (5.0-8.0); PROTEIN,URINE Negative (NEGATIVE); UGLUCOSE Negative (NEGATIVE); UROBILINOGEN,URINE 0.2 EU/dL (0.2)
--- NOTE | 2021-04-02 02:31 | NUR ---
PT RETURNED FROM CT
[2021-04-02 02:32] LABS: CALCIUM, SERUM 9.2 mg/dL (8.5-10.1); POTASSIUM 3.8 mmol/L (3.5-5.1)
[2021-04-02 02:38] LABS: BASOPHILS % (AUTO) 0.2 % (0.0-2.0); BILIRUBIN,DIRECT 0.2 mg/dL (0.0-0.2); BILIRUBIN,TOTAL 0.8 mg/dL (0.2-1.0); EOSINOPHILS % (AUTO) 0.7 % (0.0-6.0); HEMATOCRIT 43 % (39-51); HEMOGLOBIN 14.9 g/dL (13.5-17.5); LYMPHOCYTES # (AUTO) 2.4 K/uL (0.8-4.8); LYMPHOCYTES % (AUTO) 33.8 % (20.0-44.0); MEAN CORPUSCULAR HGB CONC 35 g/dl (31.0-36.0); MEAN CORPUSCULAR VOLUME 96 fL (80-96); MONOCYTES # (AUTO) 0.8 K/uL (0.1-1.30); MONOCYTES % (AUTO) 11.3 % (2.0-12.0); NEUTROPHILS # (AUTO) 3.8 K/uL (1.8-8.9); PLATELET COUNT (AUTO) 230 K/uL (150-450); RED BLOOD CELL COUNT(AUTO) 4.51 MIL/uL (4.5-6.0); TOTAL PROTEIN, SERUM 7.6 g/dL (6.4-8.2)
[2021-04-02] MEDS ORDERED: CIPR500T5 PO (02:48)
[2021-04-02] MEDS ORDERED: METR500T PO (02:48)
[2021-04-02] MEDS ORDERED: CIPROFLOXACIN HCL 500 MG TABLET ONE (02:57)
[2021-04-02] MEDS ORDERED: METRONIDAZOLE 500 MG TABLET ONE (02:57)
[2021-04-02] MEDS ORDERED: METRONIDAZOLE 500 MG TABLET PO ONE (03:00)
[2021-04-02] MEDS ORDERED: CIPROFLOXACIN HCL 500 MG TABLET PO ONE (03:00)
--- NOTE | 2021-04-02 03:40 | NUR ---
Patient discharged to home in stable condition. Written and verbal after care instructions given. Patient verbalizes understanding of instruction. IV line removed. VSS at time of discharge.
[2021-04-02 03:58] VITALS: BP 133/72
== END 2021-04-02 03:43 | disposition home or self-care (01) ==
LOC: ER 01:48
DX: K57.32 Diverticulitis of large intestine without perforation or abscess without bleeding (principal); K59.00 Constipation, unspecified; F17.200 Nicotine dependence, unspecified, uncomplicated; Z79.899 Other long term (current) drug therapy
CPT/HCPCS: 36415; 74176; 80048; 80076; 81003; 83690; 85025; 85730; 96361; 96374; 96375; 99284; J1885; J2405; J7030; J2270

== ENCOUNTER 2021-05-14 11:00 | Emergency (ER) | payer OTHER ==
[~2021-05-14] VITALS: Ht 180.3 cm; Wt 92.5 kg
[~2021-05-14 11:00] MED LIST changes: +CIPR500T5 PO
[2021-05-14 11:12] VITALS: BP 110/54
[2021-05-14] MEDS ORDERED: CIPR-262 PO (11:20)
[2021-05-14] MEDS ORDERED: METR500T PO (11:20)
--- NOTE | 2021-05-14 11:27 | NUR ---
Patient discharged to home in stable condition. Written and verbal after care instructions given. Patient verbalizes understanding of instruction.
== END 2021-05-14 11:26 | disposition home or self-care (01) ==
LOC: ER 11:01
DX: K57.92 Diverticulitis of intestine, part unspecified, without perforation or abscess without bleeding (principal); F17.200 Nicotine dependence, unspecified, uncomplicated; Z79.899 Other long term (current) drug therapy

== ENCOUNTER 2021-07-16 04:04 | Emergency (ER) | payer OTHER ==
[~2021-07-16] VITALS: Ht 180.3 cm; Wt 90.7 kg
[~2021-07-16 04:04] MED LIST changes: +CIPR-262 PO
[2021-07-16] MEDS ORDERED: ONDANSETRON HCL/PF 4 MG/2 ML VIAL IVP ONE (04:30)
[2021-07-16] MEDS ORDERED: IV NS 0.9% 500 ML BAG IV ONE (04:30)
[2021-07-16] MEDS ORDERED: KETOROLAC TROMETHAMINE INJ 30 MG/ML VIAL IV ONE (04:30)
--- NOTE | 2021-07-16 04:30 | NUR ---
BIBSELF C/O ABD PAIN STARTED SUNDAY NIGHT S/P DINNER THAT HAS PERSISTED UP UNTIL TONIGHT. PATIENT HAS A HISTORY OF DIVERTICULITIS. ALERT AND ORIENTED X4 BREATHING EVEN AND UNLABORED PLACED ON MONITOR AND ALL V/S STABLE.
[2021-07-16] MEDS ORDERED: KETOROLAC TROMETHAMINE INJ 30 MG/ML VIAL ONE (04:37)
[2021-07-16] MEDS ORDERED: ONDANSETRON HCL/PF 4 MG/2 ML VIAL ONE (04:37)
--- NOTE | 2021-07-16 05:06 | NUR ---
URINE COLLECTED SENT TO LAB
--- NOTE | 2021-07-16 05:17 | NUR ---
RAC 18G IV, BLOOD WORK COLLECTED AND SENT TO LAB
[2021-07-16 05:31] LABS: BILIRUBIN,URINE NEGATIVE (NEGATIVE); COLOR,URINE YELLOW (YELLOW); LEUKOCYTE ESTERASE ,URINE NEGATIVE (NEGATIVE); NITRITE, URINE NEGATIVE (NEGATIVE); PH,URINE 5.5 (5.0-8.0); PROTEIN,URINE NEGATIVE (NEGATIVE); UGLUCOSE NEGATIVE (NEGATIVE); UROBILINOGEN,URINE 0.2 EU/dL (0.2)
[2021-07-16 05:46] LABS: BASOPHILS % (AUTO) 0.3 % (0.0-2.0); EOSINOPHILS % (AUTO) 1.7 % (0.0-6.0); HEMATOCRIT 46 % (39-51); HEMOGLOBIN 16.2 g/dL (13.5-17.5); LYMPHOCYTES # (AUTO) 3.2 K/uL (0.8-4.8); LYMPHOCYTES % (AUTO) 35.1 % (20.0-44.0); MEAN CORPUSCULAR HGB CONC 36 g/dl (31.0-36.0); MEAN CORPUSCULAR VOLUME 94 fL (80-96); MONOCYTES # (AUTO) 1.1 K/uL (0.1-1.30); MONOCYTES % (AUTO) 11.9 % (2.0-12.0); NEUTROPHILS # (AUTO) 4.6 K/uL (1.8-8.9); PLATELET COUNT (AUTO) 222 K/uL (150-450); RED BLOOD CELL COUNT(AUTO) 4.84 MIL/uL (4.5-6.0)
[2021-07-16] MEDS ORDERED: METR500T PO (05:57)
[2021-07-16] MEDS ORDERED: CIPR-262 PO (05:57)
[2021-07-16] MEDS ORDERED: CIPROFLOXACIN HCL 500 MG TABLET ONE (05:59)
[2021-07-16] MEDS ORDERED: METRONIDAZOLE 500 MG TABLET ONE (05:59)
[2021-07-16] MEDS ORDERED: CIPROFLOXACIN HCL 500 MG TABLET PO ONE (06:00)
[2021-07-16] MEDS ORDERED: METRONIDAZOLE 500 MG TABLET PO ONE (06:00)
[2021-07-16 06:58] LABS: ALBUMIN 3.9 g/dL (3.4-5.0); BILIRUBIN,DIRECT 0.2 mg/dL (0.0-0.2); CALCIUM, SERUM 9.1 mg/dL (8.5-10.1); POTASSIUM 3.9 mmol/L (3.5-5.1); TOTAL PROTEIN, SERUM 8.2 g/dL (6.4-8.2)
--- NOTE | 2021-07-16 07:01 | NUR ---
Patient discharged to home in stable condition. Written and verbal after care instructions given. Patient verbalizes understanding of instruction.
[2021-07-16 07:13] VITALS: BP 146/80
== END 2021-07-16 07:05 | disposition home or self-care (01) ==
LOC: ER 04:07
DX: K57.32 Diverticulitis of large intestine without perforation or abscess without bleeding (principal); F17.200 Nicotine dependence, unspecified, uncomplicated; Z79.899 Other long term (current) drug therapy
CPT/HCPCS: 36415; 74176; 80048; 80076; 81003; 83690; 85025; 96361; 96374; 96375; 99284; J1885; J2405; J7040

== ENCOUNTER 2025-02-27 16:28 | Emergency (ER) | payer OTHER | END 2025-02-27 17:26 | disposition left against medical advice (07) | LOC: ER 16:30 | DX: Z53.21 Procedure and treatment not carried out due to patient leaving prior to being seen by health care provider (principal) ==